=== PATIENT | female | born 1965 | race Hispanic/Latino ===

== ENCOUNTER 2017-06-24 11:36 | Emergency (ER) | payer MEDICARE, OTHER ==
[2017-06-24 12:42] LABS: STREPTOCOCCUS GRP A ANTIGEN NEGATIVE (NEGATIVE)
[2017-06-24 12:56] LABS: INFLUENZAE A&B ANTIGEN (RAPID) NEGATIVE (NEGATIVE)
--- NOTE | 2017-06-24 13:00 | Diagnostic Imaging Report ---
PROCEDURE: X-RAY CHEST, TWO VIEWS COMPARISON: None. INDICATIONS: COUGH, SOB, CHEST PAIN FINDINGS: LUNGS: No consolidations or edema. PLEURA: No effusions or pneumothorax. HEART \T\ MEDIASTINUM: The heart is within normal size-limits. BONES \T\ SOFT TISSUES: There are healing/healed fractures of the right eighth and ninth ribs. There appears to be a healed fracture of the left ninth rib. No acute fractures are appreciated. CONCLUSION: No acute cardiopulmonary process. Rib fractures as described above. Dictated by: Walker Benito M.D. on 06/24/2017 at 13:08 Electronically approved by: Walker Benito M.D. on 06/24/2017 at 13:08
== END 2017-06-24 14:36 | disposition home or self-care (01) ==
LOC: ER 11:36
DX: R50.9 Fever, unspecified (principal); R05 Cough; J20.9 Acute bronchitis, unspecified; J06.9 Acute upper respiratory infection, unspecified; Z85.3 Personal history of malignant neoplasm of breast
CPT/HCPCS: 71020; 83518; 87070; 87400; 99283